=== PATIENT | female | born 1960 | race Asian ===

== ENCOUNTER 2018-05-01 15:53 | Emergency (ER) | payer OTHER ==
[2018-05-01] MEDS ORDERED: NS 1,000 ML IV ONE (16:16)
--- NOTE | 2018-05-01 16:19 | EDPHY ---
H & P Stated Complaint: slurred speech Time Seen by Provider: 05/01/18 16:07 HPI/ROS: CHIEF COMPLAINT: Slurred speech HISTORY OF PRESENT ILLNESS: Patient is a 57-year-old healthy female who reports an episode of slurred speech that began at 2:45 p.m. During conference call. The other people in the call thought that she had been drinking. The symptoms resolved by 3:00 p.m. When the conference call finished. Soon thereafter she developed a mild headache. No other focal weakness deficits or paresthesias. She does report occasional paresthesias in both arms right greater than left when she wakes up in the morning but her symptoms resolved with moving her arms and she typically thinks that she just slept awkwardly. She also reports history of migraines associated with her periods but has not had 1 for several years. She never had any focal weakness associated with these. She also reports a history of blacking out and falling and hitting her head in 2010 was told by the doctor that she might have had a mini- stroke. She is currently asymptomatic. She did not have any chest pain or shortness of breath associated with the episode today. No recent fevers or illness. Severity: Severe Modifying factors: Resolved spontaneously REVIEW OF SYSTEMS: Constitutional: denies: chills, fever, recent illness, recent injury EENTM: denies: blurred vision, double vision, nose congestion Respiratory: denies: cough, shortness of breath Cardiac: denies: chest pain, irregular heart rate, lightheadedness, palpitations Gastrointestinal/Abdominal: denies: abdominal pain, diarrhea, nausea, vomiting, blood streaked stools Genitourinary: denies: dysuria, frequency, hematuria, pain Musculoskeletal: denies: joint pain, muscle pain Skin: denies: lesions, rash, jaundice, bruising Neurological: See HPI denies: headache, numbness, paresthesia, tingling, dizziness, weakness Hematologic/Lymphatic: denies: blood clots, easy bleeding, easy bruising Immunologic/allergic: denies: HIV/AIDS, transplant 10 systems reviewed and negative except as noted EXAM: GENERAL: Well-appearing, well-nourished and in no acute distress. HEAD: Atraumatic, normocephalic. EYES: Pupils equal round and reactive to light, extraocular movements intact, sclera anicteric, conjunctiva are normal. ENT: TMs normal, nares patent, oropharynx clear without exudates. Moist mucous membranes. NECK: Normal range of motion, supple without lymphadenopathy or JVD. LUNGS: Breath sounds clear to auscultation bilaterally and equal. No wheezes rales or rhonchi. HEART: Regular rate and rhythm without murmurs, rubs or gallops. ABDOMEN: Soft, nontender, normoactive bowel sounds. No guarding, no rebound. No masses appreciated. BACK: No CVA tenderness, no spinal tenderness, step-offs or deformities EXTREMITIES: Normal range of motion, no pitting or edema. No clubbing or cyanosis. NEUROLOGICAL: NIH stroke score 0, Cranial nerves II through XII grossly intact. Normal speech, normal gait. 5/5 strength, normal movement in all extremities, normal sensation, normal reflexes PSYCH: Normal mood, normal affect. SKIN: Warm, dry, normal turgor, no visible rashes or lesions. Source: Patient Exam Limitations: No limitations - Personal History Current Tetanus/Diphtheria Vaccine: Unsure Current Tetanus Diphtheria and Acellular Pertussis (TDAP): Unsure - Medical/Surgical History Hx Asthma: No Hx Chronic Respiratory Disease: No Hx Diabetes: No Hx Cardiac Disease: No Hx Renal Disease: No Hx Cirrhosis: No Hx Alcoholism: No Hx HIV/AIDS: No Hx Splenectomy or Spleen Trauma: No Other PMH: migrains - Family History Significant Family History: No pertinent family hx - Social History Smoking Status: Never smoked Alcohol Use: Sober Drug Use: None Constitutional: Initial Vital Signs Temperature (C) 37.3 C 05/01/18 15:59 Heart Rate 80 05/01/18 15:59 Respiratory Rate 16 05/01/18 15:59 Blood Pressure 147/87 H 05/01/18 15:59 O2 Sat (%) 95 05/01/18 15:59 O2 Delivery Mode Room Air Allergies/Adverse Reactions: Penicillins Allergy (Verified 05/01/18 15:58) promethazine [From Phenergan] Allergy (Verified 05/01/18 15:58) Sulfa (Sulfonamide Antibiotics) Allergy (Verified 05/01/18 15:58) Home Medications: Medication Instructions Recorded NK [No Known Home Meds] 05/01/18 Medical Decision Making - Diagnostics EKG Interpretation: An EKG obtained and was read and documented in trace view. Please see trace view for full reading and report. Sinus rhythm, no acute ischemic changes Imaging Results: Imaging Impressions Chest X-Ray 05/01/18 16:16 Impression: No acute abnormality. Head CT 05/01/18 16:16 Impression: 1. No significant intracranial abnormality seen. Findings discussed with Tello Mortensen M.D. at 17:25 hour, 05/01/2018. Head CTA 05/01/18 16:16 Impression: 1. Mild partially calcified plaque at the carotid bulb bilaterally without significant encroachment upon the lumen.. 2. Normal CT angiogram of the [place], with normal variation as detailed above. 3. Moderate to severe degenerative disk disease from C3-C4 through C6-C7 with associated severe spinal and neuroforaminal stenoses. Note: All calculations were performed using NASCET criteria. Findings discussed with Tello Mortensen M.D. at 17:30 hour, 05/01/2018. Neck CTA 05/01/18 16:16 Impression: 1. Mild partially calcified plaque at the carotid bulb bilaterally without significant encroachment upon the lumen.. 2. Normal CT angiogram of the [place], with normal variation as detailed above. 3. Moderate to severe degenerative disk disease from C3-C4 through C6-C7 with associated severe spinal and neuroforaminal stenoses. Note: All calculations were performed using NASCET criteria. Findings discussed with Tello Mortensen M.D. at 17:30 hour, 05/01/2018. Imaging: Discussed imaging studies w/ call center coordinator Radiologist ED Course/Re-evaluation: 4:30 p.m. I discussed the case with Neyda Montes from [facility]. She does not recommend MRI because the stroke was too brief to show anything definitive. She recommends CT and CT angio and EKG and start the patient on aspirin and then have her follow up with her primary tomorrow for scheduling of echo and MRI etc. 5:40 p.m. the patient remains asymptomatic. We discussed the test results. She may have had a TIA versus atypical migraine versus seizure. We discussed options and engaged in shared decision making. She would prefer to go home which I agree is reasonable. We will defer MRI imaging an echo for outpatient workup. I will start her on aspirin. She does not currently have a primary doctor here in [place]. I will refer her to primary care and to Neurology. Differential Diagnosis: Partial list of the Differential diagnosis considered include but were not limited to; atypical migraine, seizure, TIA and although unlikely based on the history and physical exam, I also considered CVA, hemorrhage, dissection. I discussed these differential diagnoses and the plan with the patient as well as the usual and expected course. The patient understands that the diagnosis is provisional and that in medicine we are not always correct and that further workup is often warranted. Usual and customary warnings were given. All of the patient's questions were answered. The patient was instructed to return to the emergency department should the symptoms at all worsen or return, otherwise to followup with the physician as we discussed. - Data Points Laboratory Results: Laboratory Results 05/01/18 16:25 05/01/18 16:25 05/01/18 05/01/18 05/01/18 16:30 16:25 16:25 WBC RBC Hgb Hct MCV MCH MCHC RDW Plt Count MPV Neut % (Auto) Lymph % (Auto) Rowan % (Auto) Eos % (Auto) Baso % (Auto) Nucleat RBC Rel Count Absolute Neuts (auto) Absolute Lymphs (auto) Absolute Monos (auto) Absolute Eos (auto) Absolute Basos (auto) Absolute Nucleated RBC Immature Gran % Immature Gran # PT 12.9 SEC SEC (12.0-15.0) INR 0.95 (0.83-1.16) APTT 30.6 SEC SEC (23.0-38.0) Sodium 140 mEq/L mEq/L (135-145) Potassium 4.2 mEq/L mEq/L (3.3-5.0) Chloride 104 mEq/L mEq/L (97-110) Carbon Dioxide 29 mEq/l mEq/l (22-31) Anion Gap 7 mEq/L mEq/L (6-14) BUN 18 mg/dL mg/dL (7-23) Creatinine 0.8 mg/dL mg/dL (0.6-1.0) Estimated GFR > 60 Glucose 91 mg/dL mg/dL (70-100) Calcium 9.5 mg/dL mg/dL (8.5-10.4) POC Troponin I 0.00 ng/mL ng/mL (0.00-0.08) 05/01/18 16:25 WBC 5.87 10^3/uL 10^3/uL (3.80-9.50) RBC 5.13 10^6/uL 10^6/uL (4.18-5.33) Hgb 15.0 g/dL g/dL (12.6-16.3) Hct 44.7 % % (38.0-47.0) MCV 87.1 fL fL (81.5-99.8) MCH 29.2 pg pg (27.9-34.1) MCHC 33.6 g/dL g/dL (32.4-36.7) RDW 12.5 % % (11.5-15.2) Plt Count 235 10^3/uL 10^3/uL (150-400) MPV 9.6 fL fL (8.7-11.7) Neut % (Auto) 53.4 % % (39.3-74.2) Lymph % (Auto) 35.8 % % (15.0-45.0) Rowan % (Auto) 8.9 % % (4.5-13.0) Eos % (Auto) 1.2 % % (0.6-7.6) Baso % (Auto) 0.5 % % (0.3-1.7) Nucleat RBC Rel Count 0.0 % % (0.0-0.2) Absolute Neuts (auto) 3.14 10^3/uL 10^3/uL (1.70-6.50) Absolute Lymphs (auto) 2.10 10^3/uL 10^3/uL (1.00-3.00) Absolute Monos (auto) 0.52 10^3/uL 10^3/uL (0.30-0.80) Absolute Eos (auto) 0.07 10^3/uL 10^3/uL (0.03-0.40) Absolute Basos (auto) 0.03 10^3/uL 10^3/uL (0.02-0.10) Absolute Nucleated RBC 0.00 10^3/uL 10^3/uL (0-0.01) Immature Gran % 0.2 % % (0.0-1.1) Immature Gran # 0.01 10^3/uL 10^3/uL (0.00-0.10) PT INR APTT Sodium Potassium Chloride Carbon Dioxide Anion Gap BUN Creatinine Estimated GFR Glucose Calcium POC Troponin I Medications Given: Discontinued Medications Aspirin (Aspirin) 324 mg PO EDNOW ONE Stop: 05/01/18 17:44 Last Admin: 05/01/18 17:47 Dose: 324 mg Sodium Chloride (Ns) 1,000 mls @ 500 mls/hr IV EDNOW ONE PRN Reason: Protocol Stop: 05/01/18 18:15 Last Admin: 05/01/18 16:31 Dose: 1,000 mls Point of Care Test Results: Chemistry 05/01/18 16:30 POC Troponin I 0.00 ng/mL ng/mL (0.00-0.08) Departure - Departure Disposition: Home, Routine, Self-Care Clinical Impression: Slurred speech Condition: Fair Instructions: Transient Ischemic Attack (ED) Additional Instructions: It is difficult to tell whether you had a TIA or seizure or atypical migraine. We recommend that she continue the workup as an outpatient with a primary care physician and Neurology has also been referred. They may order an echocardiogram and MRI and possibly EEG. We also when she to begin taking a baby aspirin daily. Referrals: Catie Marquez MD [[facility] [place] Primary Care Provider] - 2-3 days, call for appt. Nino Maldonado DO [Medical Doctor] - 5-7 days, call for appt.
--- NOTE | 2018-05-01 16:34 | CPEKG ---
Test Reason : OPEN Blood Pressure : / mmHG Vent. Rate : 059 BPM Atrial Rate : 059 BPM P-R Int : 137 ms QRS Dur : 094 ms QT Int : 423 ms P-R-T Axes : 068 033 057 degrees QTc Int : 419 ms Sinus rhythm Left atrial enlargement Confirmed by Tello Mortensen ([id number]) on 05/01/2018 4:34:27 PM Referred By: Confirmed By:Tello Mortensen
[2018-05-01 16:36] LABS: PLATELET COUNT 235 10^3/uL (150-400)
[2018-05-01 16:44] LABS: INR 0.95 (0.83-1.16); PROTIME(PATIENT) 12.9 SEC (12.0-15.0)
[2018-05-01] MEDS ORDERED: IOPAMIDOL (ISOVUE 370) 100 ML BTL IV ONE (16:57)
[2018-05-01 17:43] VITALS: BP 123/87
[2018-05-01] MEDS ORDERED: ASPIRIN 81 MG CHEWABLE TAB PO ONE (17:43)
== END 2018-05-01 18:02 | disposition home or self-care (01) ==
DX: R47.81 Slurred speech (principal); E86.9 Volume depletion, unspecified
CPT/HCPCS: 84484-PO; Q9967

== ENCOUNTER → 2018-06-10 | Outpatient (CLI) | payer OTHER | LOC: FIMAGING 06:23 | PROVIDERS: ATTEND Psychiatry & Neurology Neurology | DX: R47.9 Unspecified speech disturbances (principal); R90.82 White matter disease, unspecified ==

== ENCOUNTER 2018-09-01 10:54 | Emergency (ER) | payer OTHER | END 2018-09-01 15:39 | disposition home or self-care (01) ==

== ENCOUNTER → 2018-11-11 | Outpatient (CLI) | payer BC | LOC: FIMAGING 16:16 | PROVIDERS: ATTEND Family Medicine Sports Medicine | DX: S06.0X9D Concussion with loss of consciousness of unspecified duration, subsequent encounter (principal) ==